=== PATIENT | male | born 1950 | race Caucasian/White ===

== ENCOUNTER 2017-06-29 10:13 | Day surgery (SDC) | payer MEDICARE ==
[2017-06-28 19:01] VITALS: BMI 30.8
[2017-06-29] MEDS ORDERED: Midazolam HCl 2 mg/2 ml Vial ONE ×2 (11:57→12:40)
[2017-06-29] MEDS ORDERED: HYDROmorphone 0.5 MG/0.5 ML SYRINGE ONE (12:27)
[2017-06-29] MEDS ORDERED: Fentanyl 100 MCG/2 ML VIAL ONE (12:40)
--- NOTE | 2017-06-29 15:32 | MRI ---
MRI LUMBAR SPINE PERFORMED WITHOUT CONTRAST ENHANCEMENT: History: Low back pain radiating to left hip. FINDINGS: Vertebral bodies are normal in height. There is mild disc narrowing at all vertebral body levels and disc desiccation changes with more severe disc narrowing seen at L2-3. Degenerative facet changes are present. No significant periaortic adenopathy is visualized. Small T2 hyperintense lesions involving the kidne ys are statistically most likely a small cyst. T12-L1: Degenerative facet changes without canal or foraminal stenosis. L1-2: Degenerative facet and ligamentous hypertrophic changes without canal or foraminal stenosis. L2-3: Once again there are degenerative facet and ligamentous hypertrophic changes. No significant ca nal narrowing seen. L3-4: Facet and ligamentous hypertrophic changes with a mild disc bulge contribute to a moderately se huey canal stenosis and moderate to severe bilateral foraminal narrowing. L4-5: Very severe canal stenosis is present at this level with marked degenerative facet and ligament ous hypertrophic changes. There is moderately severe left foraminal narrowing, minimal right sided fo raminal narrowing seen. L5-S1: Canal is mildly stenotic. Degenerative facet changes and disc changes contribute to moderately severe bilateral foraminal narrowing. IMPRESSION: 1. Multilevel canal and foraminal stenosis. POS: [facility]
== END 2017-06-29 14:17 | disposition home or self-care (01) ==
LOC: SDC/OP 10:13 → EDSTATUS 12:00 → SDC/OP 14:17
PROVIDERS: ATTEND Psychiatry & Neurology Neurology
DX: M51.17 Intervertebral disc disorders with radiculopathy, lumbosacral region (principal); I25.10 Atherosclerotic heart disease of native coronary artery without angina pectoris; I10 Essential (primary) hypertension; F17.210 Nicotine dependence, cigarettes, uncomplicated; Z88.8 Allergy status to other drugs, medicaments and biological substances; Z79.82 Long term (current) use of aspirin; Z79.1 Long term (current) use of non-steroidal anti-inflammatories (NSAID); Z79.899 Other long term (current) drug therapy
CPT/HCPCS: 72148; J1170; J2250; J3010

== ENCOUNTER 2017-10-08 10:41 | Outpatient (CLI) | payer MEDICARE ==
--- NOTE | 2017-10-08 14:18 | RAD ---
RADIOGRAPH LUMBAR SPINE 4 VIEWS: DATE: 10-08-17 HISTORY: 67-year-old male with low back pain and lumbar spondylosis. COMPARISON: None. TECHNIQUE: Three lateral views in neutral, flexion, and extension. AP view. FINDINGS: There are five lumbar type vertebrae. There is mild left lateral curvature, with apex at L1-2. Large bridging osteophytes protruding into the prevertebral space at T12-L1 and L1-2. Vertebral body height s are maintained. Multilevel moderate disc space narrowing. Grade I anterolisthesis of L4 on L5 due t o severe facet DJD at that level. No definite instability between flexion or extension identified. IMPRESSION: 1. Lumbar spondylosis with multilevel degenerative disc disease and facet osteoarthrosis. 2. Severe facet osteoarthrosis at L4-5 causing grade I spondylolisthesis at that level. 3. No instability identified. CHANDAN POS: [facility]
== END 2017-10-08 10:42 | disposition home or self-care (01) ==
LOC: TBSIIMAG 10:41
PROVIDERS: ATTEND Surgery
DX: M48.061 Spinal stenosis, lumbar region without neurogenic claudication (principal); M51.36 Other intervertebral disc degeneration, lumbar region; M47.896 Other spondylosis, lumbar region; M43.16 Spondylolisthesis, lumbar region
CPT/HCPCS: 72120

== ENCOUNTER 2018-01-20 11:11 | Day surgery (SDC) | payer MEDICARE ==
[2018-01-19 08:56] VITALS: BMI 29.1
[~2018-01-20 11:11] MED LIST: Dexamethasone 20 MG/5 ML VIAL ONE; Glycopyrrolate 0.2 MG/ML 5 ML SYRINGE ONE; Labetalol HCl 100 MG/20 ML VIAL ONE; Lidocaine 1% PF 5 ML VIAL ONE; Metoclopramide HCl 10 MG/2 ML VIAL ONE; Ondansetron PF 4 MG/2 ML Vial ONE; PROPOFOL 200 MG/20 ML VIAL ONE; PROVENTIL INHALER 6.7 G (200 INHALATIONS) ONE
[2018-01-20 12:06] LABS: Hemoglobin 17.1 g/dL (14.0-18.0); Mean Corpuscular HGB CONC 32.3 g/dL (32.0-36.0); Mean Platelet Volume 7.7 fL (7.4-10.4); Platelet Count 251 thou/uL (130-400); RBC Distribution Width 12.3 % (11.5-14.5); Red Blood Cell (RBC) Count 5.51 mill/uL (4.70-6.10); White Blood Cell (WBC) Count 12.5 thou/uL (4.8-10.8)
[2018-01-20 12:18] LABS: PTT 34.7 SEC (22.9-36.1); Prothrombin Time 13.1 SEC (12.0-14.7)
[2018-01-20] MEDS ORDERED: CEFAZOLIN 2 GM/50 ML BAG ONE (12:21)
[2018-01-20 12:26] LABS: Anion Gap 10 mmol/L (10-20); BUN (Urea Nitrogen) 14 mg/dL (8.4-25.7); Calc. Creatinine Clearance 125 mL/min (70-130); Calcium 9.5 mg/dL (7.8-10.44); Carbon Dioxide 26 mmol/L (23-31); Chloride 105 mmol/L (98-107); Estimated GFR-MDRD Greater than 90; Glucose 97 mg/dL (80-115); Potassium 4.1 mmol/L (3.5-5.1); Sodium 137 mmol/L (136-145)
[2018-01-20] MEDS ORDERED: Sodium Chloride 0.9% 10 ML ONE (12:30)
[2018-01-20] MEDS ORDERED: Bacitracin Zinc Ointment 30 gm TUBE ONE (12:30)
[2018-01-20] MEDS ORDERED: Thrombin 5000 UNITS/5 ML VIAL ONE (12:30)
[2018-01-20] MEDS ORDERED: Fentanyl 100 MCG/2 ML VIAL ONE ×2 (13:32→15:57)
[2018-01-20] MEDS ORDERED: Bisacodyl 10 MG SUPP PR PRN (16:05)
[2018-01-20] MEDS ORDERED: Mag-Al 1200 mg/1200 mg/30 ML UDCUP PO PRN (16:05)
[2018-01-20] MEDS ORDERED: Promethazine HCl 25 MG/ML VIAL IM PRN ×2 (16:05→16:30)
[2018-01-20] MEDS ORDERED: tiZANidine HCl 4 MG TAB PO PRN (16:05)
[2018-01-20] MEDS ORDERED: Milk Of Magnesia 30 ML UDCUP PO PRN (16:05)
[2018-01-20] MEDS ORDERED: Fleet Enema 133 ML BOT PR PRN (16:05)
[2018-01-20] MEDS ORDERED: Acetaminophen 325 MG TAB PO PRN (16:05)
[2018-01-20] MEDS ORDERED: Ondansetron HCl/PF 4 MG/2 ML Vial IVP PRN (16:30)
[2018-01-20] MEDS ORDERED: Morphine Sulfate 2 MG/ML SYRINGE SLOW IVP PRN (16:30)
[2018-01-20] MEDS ORDERED: PACU-Morphine 4MG/ML VIAL SLOW IVP PRN (16:30)
[2018-01-20] MEDS ORDERED: Promethazine HCl 25 MG/ML VIAL SLOW IVP PRN (16:30)
[2018-01-20] MEDS ORDERED: HYDROmorphone 2 MG/ML VIAL SLOW IVP PRN (16:30)
[2018-01-20] MEDS ORDERED: Meperidine HCl/PF 25 MG/ML VIAL SLOW IVP PRN (16:30)
[2018-01-20] MEDS ORDERED: Morphine 4 MG/ML VIAL ONE ×2 (16:35→16:56)
[2018-01-20] MEDS ORDERED: HYDROmorphone 2 MG/ML VIAL ONE (17:35)
[2018-01-20] MEDS: Sodium Chloride 0.9% 1,000 ML IV SCH (19:51)
[2018-01-20] MEDS: HYDROcodone/Acetaminophen 7.5/325 mg Tablet PO PRN (20:43)
[2018-01-20] MEDS: CEFAZOLIN 2 GM/50 ML BAG IVPB SCH (20:43)
[2018-01-20] MEDS: Acetaminophen/Codeine 30-300mg Tablet PO PRN (20:44)
[2018-01-21] MEDS: Morphine 2 MG/ML SYRINGE SLOW IVP PRN ×2 (00:25→03:04)
[2018-01-21] MEDS: HYDROcodone/Acetaminophen 7.5/325 mg Tablet PO PRN (00:49)
[2018-01-21] MEDS: Acetaminophen/Codeine 30-300mg Tablet PO PRN (00:49)
[2018-01-21] MEDS: CEFAZOLIN 2 GM/50 ML BAG IVPB SCH (03:04)
[2018-01-21 03:55] VITALS: TEMP 98.6
[2018-01-21] MEDS: Sodium Chloride 0.9% 1,000 ML IV SCH (06:45)
[2018-01-21 08:24] VITALS: BP 136/81
[2018-01-21] MEDS ORDERED: Lisinopril 10 MG TAB PO SCH (09:00)
[2018-01-21] MEDS ORDERED: Ezetimibe 10 MG TAB PO SCH (09:00)
--- NOTE | 2018-01-21 13:25 | DIS-2 ---
DATE OF ADMISSION: 01/20/2018 DATE OF DISCHARGE: 01/21/2018 DISCHARGE DIAGNOSES: 1. Lumbar spinal stenosis with neurogenic claudication. 2. Lumbar radiculopathy. HOSPITAL COURSE: Mr. Mojica was admitted to undergo multilevel lumbar laminectomies at [facility]. He tolerated the procedure well and his surgery was without complication. He required 1 ove rnight stay and was stable for discharge. He had met criteria and he had good strength in the bilate ral lower extremities and was up walking. He had significant improvement in bilateral lower extremit y pain with walking, but did have some incisional back pain. Appropriate patient education and [facility] appointments were provided and at the time of discharge, the patient and his were pleased wi th his outcome postoperatively.
--- NOTE | 2018-01-24 10:45 | OP ---
DATE OF PROCEDURE: 01/20/2018 SURGEON: Richard Fletcher M.D. SUPERVISOR PHOTOCOMPOSITION: Frank Love PA-C. PREPROCEDURE DIAGNOSES: Multilevel lumbar stenosis with low back and leg pain. POSTPROCEDURE DIAGNOSES: Multilevel lumbar stenosis with low back and leg pain. PROCEDURE: L3-L4, L4-L5, L5-S1 laminectomies, partial facetectomies, foraminotomies over the L3, L4, L5, S1 nerve roots. DESCRIPTION OF PROCEDURE: After informed consent was obtained from the patient, the patient brought to OR. Proper patient pause and identification was carried out. He was placed in excellent endotrac heal anesthesia and positioned prone on the OR table. All appropriate points were padded. We identi fied the L3, L4, L5, S1 dorsal spines. A linear tawnya was made over this region. This area was steri elif cleansed, prepared, and draped. Proper patient pause and identification was carried out. The w ound was then opened with a combination of sharp, monopolar and blunt dissection. The L3, L4, L5, S1 dorsal spines lamina were exposed. Localization film confirmed our area of interest. We then perfo rmed L3, L4, L5, S1 laminectomies, partial facetectomies and foraminotomies over all of those nerve r oots. Copious irrigation occurred throughout as did maximizing hemostasis. The wound was then close d in anatomic layers following the sprinkling of vancomycin powder. There was no spinal fluid leak. The patient then emerged from anesthesia.
== END 2018-01-21 09:56 | disposition home or self-care (01) ==
LOC: SDC 11:11 → SURG A 16:05 → UNDOADMOB 16:05 → UNDODISOB 01-21 09:56 → SDC 01-21 09:56
PROVIDERS: ATTEND Surgery
PROC: 01NB0ZZ Release Lumbar Nerve, Open Approach (ICD-10-PCS; principal; 2018-01-20)
DX: M48.062 Spinal stenosis, lumbar region with neurogenic claudication (principal); M54.16 Radiculopathy, lumbar region; Z79.1 Long term (current) use of non-steroidal anti-inflammatories (NSAID); Z79.82 Long term (current) use of aspirin; Z79.899 Other long term (current) drug therapy; Z88.8 Allergy status to other drugs, medicaments and biological substances
CPT/HCPCS: 36415; 76001; 80048; 85027; 85610; 85730; 96374; J0131; J1170; J2270; J2550; J3010; J3370; J3490

== ENCOUNTER 2018-03-22 06:19 | Outpatient (CLI) | payer MEDICARE ==
[2018-03-22 12:56] LABS: Hemoglobin 16.6 g/dL (14.0-18.0); Mean Corpuscular Hemoglobin 30.9 pg (27.0-31.0); Mean Corpuscular Volume 93.7 fL (78.0-98.0); Mean Platelet Volume 8.2 fL (7.4-10.4); Platelet Count 234 thou/uL (130-400); RBC Distribution Width 12.6 % (11.5-14.5); Red Blood Cell (RBC) Count 5.36 mill/uL (4.70-6.10); White Blood Cell (WBC) Count 12.8 thou/uL (4.8-10.8)
== END 2018-03-22 06:20 | disposition home or self-care (01) ==
LOC: LABBT 06:19
PROVIDERS: ATTEND Orthopaedic Surgery
DX: Z01.812 Encounter for preprocedural laboratory examination (principal); G56.22 Lesion of ulnar nerve, left upper limb
CPT/HCPCS: 85027

== ENCOUNTER 2018-03-24 07:19 | Day surgery (SDC) | payer MEDICARE ==
[2018-03-22 12:06] VITALS: BMI 29.0
[2018-03-24] MEDS ORDERED: Bupivacaine HCl 0.5%/Epinephrine 1:200,000/PF 30 ml Vial ONE (08:01)
[2018-03-24 08:40] LABS: Anion Gap 12 mmol/L (10-20); BUN (Urea Nitrogen) 15 mg/dL (8.4-25.7); Calc. Creatinine Clearance 126 mL/min (70-130); Calcium 9.7 mg/dL (7.8-10.44); Carbon Dioxide 27 mmol/L (23-31); Chloride 104 mmol/L (98-107); Estimated GFR-MDRD Greater than 90; Glucose 97 mg/dL (80-115); Potassium 4.6 mmol/L (3.5-5.1); Sodium 138 mmol/L (136-145)
[2018-03-24] MEDS ORDERED: CEFAZOLIN 2 GM/50 ML BAG ONE (08:45)
[2018-03-24] MEDS ORDERED: Fentanyl 100 MCG/2 ML VIAL ONE (08:50)
[2018-03-24] MEDS ORDERED: Lidocaine 1% PF 5 ML VIAL ONE (14:18)
[2018-03-24] MEDS ORDERED: PROPOFOL 200 MG/20 ML VIAL ONE (14:18)
--- NOTE | 2018-03-24 17:07 | EKG ---
Test Reason : PREOP Blood Pressure : / mmHG Vent. Rate : 080 BPM Atrial Rate : 080 BPM P-R Int : 184 ms QRS Dur : 134 ms QT Int : 402 ms P-R-T Axes : 052 071 018 degrees QTc Int : 463 ms Normal sinus rhythm Right bundle branch block Abnormal ECG No previous ECGs available Confirmed by DR. Harjeet LOVE ([id number]) on 03/24/2018 5:06:55 PM Referred By: JEFFERY Confirmed By:DR. Harjeet LOVE
--- NOTE | 2018-03-24 22:29 | OP ---
DATE OF PROCEDURE: 03/24/2018 PREOPERATIVE DIAGNOSIS: Left cubital tunnel. POSTOPERATIVE DIAGNOSIS: Left cubital tunnel. PROCEDURES PERFORMED: 1. Left carpal tunnel release. 2. Long-arm splint. JOB ORDER CLERK: None. ANESTHESIOLOGIST: Diana Torre MD ANESTHESIA: The patient received a LMA with a 15 mL of Marcaine 0.5% with epinephrine. TOURNIQUET TIME: 24 minutes at 250 mmHg. ANTIBIOTICS: Ancef 2 g. COMPLICATIONS: None. HISTORY OF PRESENT ILLNESS: Mr. Mojica is a 67-year-old male, who presented to me with left elbow pain, which has been present for several weeks. The patient had nerve conduction studies, which showed persistent numbness and tingling to his fingers. The patient has severe cubital tunnel changes on imaging. The patient had numbness and tingling and acute onset of pain persistent to 4th and 5th finger. I discussed with the patient the risks and benefits of a left cubital tunnel release to include pain, scar, bleeding, infection, damage to vital structures, decreased range of motion and strength, continued pain despite surgical intervention, need for further surgeries, failure procedure, damage to vital structures, loss of life or limb. The patient understood the risks and benefits and would like to proceed. DESCRIPTION OF PROCEDURE: A time-out performed designating the patient's left upper extremity as the operative site, based on site, consent, and marking. After time-out, the patient's left upper extremity was prepped and draped in the sterile fashion. Tourniquet was brought up for 24 minutes. I made an incision down through skin, I came on top of where the tunnel lies. I found the patient's triceps dissected down and found the nerve proximally, moved and traced it distally taking the sleeve from lateral to medial to help keep it from subluxing and take the Tavares's fascia in that direction, as I came up, I completely released all of the Tavares's fascia. There is little bursitis and it looked like what appeared to be a hematoma or potentially a bursal sac that was filled with blood, which I decompressed, which could have been causing a mass effect on the patient's nerve distally. After I can decompress that, I sucked out all the blood, I followed into the muscle plane, I did not take down any of the patient's branches to its beginning of his FCU or any other musculature on the ulnar surface of the arm. I completely ensured that it was completely decompressed throughout proximally and distally. Completing this, I used the flap that I created in Tavares's ligament and sewed it under the skin to help with keeping it from subluxing, 3-0 nylon. I injected 15 mL of 0.5% Marcaine with epinephrine. I then placed the patient in a posterior splint. The patient will remain in a splint for a week, then remove it, and begin range of motion of his elbow and follow up with me in 2 weeks. The patient will be sent home with hydrocodone 5/325 for pain relief. Job ID: [id number]
== END 2018-03-24 11:12 | disposition home or self-care (01) ==
LOC: SDC 07:19
PROVIDERS: ATTEND Orthopaedic Surgery
PROC: 01N40ZZ Release Ulnar Nerve, Open Approach (ICD-10-PCS; principal; 2018-03-24)
DX: G56.22 Lesion of ulnar nerve, left upper limb (principal); I25.10 Atherosclerotic heart disease of native coronary artery without angina pectoris; I10 Essential (primary) hypertension; Z87.891 Personal history of nicotine dependence; Z79.82 Long term (current) use of aspirin; Z79.899 Other long term (current) drug therapy; Z88.8 Allergy status to other drugs, medicaments and biological substances
CPT/HCPCS: 80048; 93005; 93010; J0670; J2001; J2704; J3010

== ENCOUNTER 2018-10-27 11:56 | Inpatient (IN) | payer MEDICARE ==
[2018-10-27 12:24] LABS: #Basophils 0.1 thou/uL (0.0-0.2); #Eosinphils 0.2 thou/uL (0.0-0.7); #Lymphocytes 4.4 thou/uL (1.20-3.40); #Neutrophils 8.8 thou/uL (1.40-6.50); %Basophils 0.7 % (0.0-1.0); %Eosinophils 1.7 % (0.0-10.0); %Lymphocytes 30.4 % (21.0-51.0); %Neutrophils 60.3 % (42.0-75.0); Hemoglobin 17.1 g/dL (14.0-18.0); Mean Corpuscular HGB CONC 32.9 g/dL (32.0-36.0); Mean Corpuscular Hemoglobin 30.6 pg (27.0-31.0); Mean Corpuscular Volume 93.2 fL (78.0-98.0); Mean Platelet Volume 8.3 fL (7.4-10.4); Platelet Count 220 thou/uL (130-400); RBC Distribution Width 13.3 % (11.5-14.5); Red Blood Cell (RBC) Count 5.59 mill/uL (4.70-6.10); White Blood Cell (WBC) Count 14.6 thou/uL (4.8-10.8)
--- NOTE | 2018-10-27 12:36 | RAD ---
PORTABLE CHEST ONE VIEW: Date: 10-27-18 at 12:22 p.m. History: Shortness of breath, chest pain. FINDINGS: Comparison is made with exam of 11-07-12. The heart size is normal. The lungs are well expanded without focal areas of consolidation, pneumotho races, or pleural effusions. IMPRESSION: No radiographic evidence of acute cardiopulmonary process. POS: [facility]
[2018-10-27] MEDS ORDERED: Metoprolol Tartrate 5 MG/5 ML VIAL ONE ×2 (12:42→14:47)
[2018-10-27 12:43] LABS: ALT (SGPT) 20 U/L (8-55); AST (SGOT) 20 U/L (5-34); Albumin 4.4 g/dL (3.4-4.8); Alkaline Phosphatase 104 U/L (40-150); Anion Gap 9 mmol/L (10-20); BUN (Urea Nitrogen) 13 mg/dL (8.4-25.7); Bilirubin, Total 0.6 mg/dL (0.2-1.2); CK (CPK) 110 U/L (30-200); Calc. Creatinine Clearance 0 mL/min (70-130); Calcium 9.7 mg/dL (7.8-10.44); Carbon Dioxide 27 mmol/L (23-31); Chloride 104 mmol/L (98-107); Estimated GFR-MDRD Greater than 90; Globulin 2.6 g/dL (2.4-3.5); Glucose 110 mg/dL (80-115); Lipase 16 U/L (8-78); Potassium 4.2 mmol/L (3.5-5.1); Sodium 136 mmol/L (136-145)
[2018-10-27] MEDS ORDERED: Digoxin 0.5 MG/2 ML AMP ONE (15:31)
[2018-10-27 15:58] LABS: Troponin I 0.018 ng/mL (< 0.028)
[2018-10-27] MEDS ORDERED: Senokot S 8.6-50 MG TAB PO PRN (16:13)
[2018-10-27] MEDS ORDERED: Bisacodyl 10 MG SUPP PR PRN (16:13)
[2018-10-27] MEDS ORDERED: Zolpidem Tartrate 5 MG TAB PO PRN (16:13)
[2018-10-27] MEDS ORDERED: Calcium Carbonate 500 MG ChewTAB PO PRN (16:13)
[2018-10-27] MEDS ORDERED: HYDROcodone/Acetaminophen 5/325 mg Tablet PO PRN (16:13)
[2018-10-27] MEDS ORDERED: Loperamide HCl 2 MG CAP PO PRN (16:13)
[2018-10-27] MEDS ORDERED: Ondansetron PF 4 MG/2 ML Vial IVP PRN (16:13)
[2018-10-27] MEDS ORDERED: Ondansetron ODT 4 MG TAB PO PRN (16:13)
[2018-10-27] MEDS ORDERED: Acetaminophen 325 MG TAB PO PRN (16:13)
[2018-10-27] MEDS ORDERED: Sodium Chloride 0.9% 1,000 ML IV SCH (16:15)
[2018-10-27] MEDS ORDERED: Digoxin 0.5 MG/2 ML AMP SLOW IVP SCH (16:45)
--- NOTE | 2018-10-27 17:10 | HP ---
PRIMARY CARE PHYSICIAN: Steven De La Rosa MD REASON FOR ADMISSION: Atrial flutter with rapid ventricular response. HISTORY OF PRESENT ILLNESS: This is a 68-year-old male, who has underlying history of hypertension and dyslipidemia, who presented to the emergency room with complaint of generalized weakness. The patient reports that at home he suddenly felt generalized weak and he decided to check his vitals and he noted that his pulse was very fast and his blood pressure was very low. He was feeling weak and mild dizziness and mild shortness of breath. He did not have any chest pain. The patient reports that today around 3:30 a.m., he woke up, and at that time, he was having vague epigastric discomfort and he was feeling weak as well as diaphoretic and symptoms resolved, but this morning again he was feeling weak and his blood pressure was low and pulse was fast and that is why he called his primary care physician who advised him to go to emergency room for evaluation. In the emergency room, the patient was hypotensive. He had atrial flutter with rapid ventricular response. The patient did not have this type of problem in the past. He did not have any stroke in past. He was given two doses of metoprolol 5 mg, but still his heart rate was not coming down and that is why we decided to keep this patient in the hospital. Currently, the patient denies any chest pain. He denies any dizziness. He denies any constipation, diarrhea, melena, or hematochezia. REVIEW OF SYSTEMS: CONSTITUTIONAL: Negative for weight loss or gain, ability to conduct usual activities. SKIN: Negative for rash, itching. EYES: Negative for double vision, pain. ENT/MOUTH: Negative for nose bleeding, neck stiffness, pain, tenderness. CARDIOVASCULAR: Negative for palpitations, dyspnea on exertion, orthopnea. RESPIRATORY: Negative for shortness of breath, wheezing, cough, hemoptysis, fever or night sweats. GASTROINTESTINAL: Negative for poor appetite, abdominal pain, heartburn, nausea, vomiting, constipation, or diarrhea. GENITOURINARY: Negative for urgency, frequency, dysuria, nocturia. MUSCULOSKELETAL: Negative for pain, swelling. NEUROLOGIC/PSYCHIATRIC: Negative for anxiety, depression. ALLERGY/IMMUNOLOGIC: Negative for skin rash, bleeding tendency. Please see my HPI for pertinent positives and negatives. All other review of systems reviewed and negative except as mentioned in the HPI. PAST MEDICAL HISTORY: Hypertension, dyslipidemia, osteoarthritis, and DJD of spine. PAST SURGICAL HISTORY: Shoulder surgery and knee surgery. PAST PSYCHIATRIC HISTORY: Reviewed and negative. SOCIAL HISTORY: The patient is currently smoking cigarettes. He is . He smokes about half pack per day. He denies any alcohol abuse. He denies any other illicit drug abuse. FAMILY HISTORY: No strong family history of premature coronary artery disease, stroke, or cancer. ALLERGIES: THE PATIENT IS NOT TOLERATING ANY STATINS. MEDICATIONS: Current home medications: 1. Aspirin 81 mg p.o. daily. 2. Lisinopril 10 mg daily. 3. Zetia 10 mg p.o. daily. EMERGENCY ROOM COURSE: The patient was given metoprolol 5 mg IV x2 dose. FAMILY HISTORY: No strong family history of premature coronary artery disease, stroke, or cancer. PHYSICAL EXAMINATION: VITAL SIGNS: Currently, blood pressure 112/85, pulse 178, respiratory rate 19, temperature 98.1, and saturation 96% on room air. Weight 92.9 kg. GENERAL: The patient is currently alert and awake, no obvious acute distress. HEENT: Head; normocephalic, atraumatic. Eyes; pupils round, reactive to light. Extraocular muscle intact. ENT; oropharynx within normal limits. Moist mucous membranes. No oral lesion. No pharyngeal erythema. No exudate. NECK: Supple. No JVD. No thyromegaly. No carotid bruit. No jugular venous distention. LUNGS: Clear to auscultation without any rhonchi or rales. CARDIAC: S1 and S2 tachycardia. No murmur, no gallop, no rub. ABDOMEN: Soft, benign, without any tenderness. EXTREMITIES: No edema. NEUROLOGIC: Nonfocal examination. SIGNIFICANT LABORATORY DATA: EKG showing atrial flutter, right bundle-branch block pattern. Chest x-ray, no acute process. CBC; WBC 14.6, hemoglobin 17.1, and platelets 220. BMP; sodium 136, potassium 4.2, chloride 104, carbon dioxide 27, BUN 13, creatinine 0.78, glucose 110, and calcium 9.7. LFT; AST 20, ALT 20, alkaline phosphatase 104, albumin 4.4, and lipase 16. Troponin negative x2. ASSESSMENT AND PLAN: 1. Atrial flutter with rapid ventricular response. Cardiology will be consulted. Echocardiography will be obtained. We will check TSH tomorrow morning. Further treatment plan will defer to Cardiology. We will give digoxin 0.25 mg one time dose now, and if needed, we will repeat the dose of digoxin. 2. Dyslipidemia. Continue Zetia 10 mg p.o. daily. 3. Hypertension. Currently, the patient has low blood pressure and that is why we will hold on lisinopril therapy. 4. Tobacco abuse disorder. The patient was given smoking cessation counseling. 5. Deep venous thrombosis prophylaxis. 6. The patient will be kept on Lovenox 1 mg/kg subcu twice daily for atrial flutter. 7. Gastrointestinal prophylaxis. Pepcid 20 mg p.o. b.i.d. CODE STATUS: The patient is full code. The patient's is surrogate decision maker. DISPOSITION PLAN: Based on clinical course. Job ID: [id number]
[2018-10-27 18:38] LABS: Troponin I 0.016 ng/mL (< 0.028)
[2018-10-27 20:26] VITALS: BMI 29.7
[2018-10-27] MEDS ORDERED: Diltiazem 125 MG in Sodium Chloride 0.9% 100 ML IVPB SCH (20:45)
[2018-10-27] MEDS ORDERED: Enoxaparin Sodium 100 MG/ML SYRINGE SC SCH (21:00)
[2018-10-27] MEDS ORDERED: Prevnar 13-Val Conj/PF 0.5 ML SYRINGE IM ONE (21:00)
[2018-10-27] MEDS: Famotidine 20 MG TAB PO SCH (21:14)
[2018-10-27] MEDS: Sodium Chloride 0.9% 1,000 ML IV SCH (21:15)
--- NOTE | 2018-10-28 03:19 | CON ---
DATE OF CONSULTATION: INDICATION FOR CONSULTATION: A 68-year-old patient with atrial flutter, new onset this early a.m. with a rapid ventricular response, heart rate up to 180 beats per minute. HISTORY OF PRESENT ILLNESS: This very unfortunate 68-year-old gentleman, who has been seen by Dr. Woodward in the past, who has had intermittent episodes of atrial flutter. He has been evaluated by electrophysiology. There was some discussion about an ablation, but this is yet to be performed. He has had this intermittent flutter for several years now. He also has a history of coronary artery disease. He underwent a cardiac catheterization by Dr. Woodward in 2013. At that time, he was deemed to be medically treated. The left anterior descending artery had a 50% proximal stenosis. The left circumflex also had a 50% lesion in the 2nd obtuse marginal branch. The first obtuse margin branch apparently was diffusely diseased. The right coronary was chronically occluded after a marginal branch, but distally was filling by collaterals. At that time, he also had a right bundle-branch block, which persist. No left ventriculogram was performed at the time of the cardiac catheterization. He has not had a recent echocardiogram in the hospital. I do not have the medical records from the office available at this time. He presented this morning after noticing he woke up around 3'o clock this morning is a rapid heart rate. He denied any chest pain. He was not short of breath. Usually this atrial flutter will resolve itself, but did not this time. He presents my emergency room at which time, heart rate was 180 beats per minute with a right bundle-branch block and what appeared to be an atrial flutter pattern. He has some ST-segment changes, which could be due to a right bundle-branch block or due to mild ischemia associated with his underlying coronary disease, but he denied chest pain. Unfortunately, he still continues to smoke half a pack of cigarettes a day. He is on minimal medications. He is not on a beta taty, but was taking an ERIKA inhibitor as well as an aspirin a day and I believe he also was taking aspirin, lisinopril and Zetia with his home medications. He also takes some medication for his arthritis. He has actually been doing quite well with his coronary disease and had been stable until he started having the atrial flutter today. He was given metoprolol in the emergency room. The heart rate was still somewhat increased. At this time, it is ranging anywhere between 110s to 130s. He also was given 2 doses of IV digoxin 0.5 mg and then another 0.25 mg. At this time, we will initiate IV diltiazem, if the blood pressure tolerates this for better rate control and would suggest that he see dock or pier laborer tomorrow for possible ablation of the atrial flutter. He is not on any oral anticoagulation except for the aspirin. PAST MEDICAL HISTORY: Significant for the coronary artery disease as well as intermittent atrial flutter, possibly atrial fibrillation. He has had shoulder surgery and knee surgery. He has osteoarthritis. He has had degenerative joint disease of the spine. He has dyslipidemia as well as hypertension. FAMILY HISTORY: Noncontributory for any early heart disease. SOCIAL HISTORY: He continues to smoke half a pack a day. He drinks occasional beer. He is . ALLERGIES: HE HAS NO SPECIFIC MEDICATION ALLERGIES, BUT HE SAYS HE CANNOT TOLERATE STATIN MEDICATIONS DUE TO BACK PAIN. MEDICATIONS: As noted above for home: 1. Lisinopril 10 mg daily. 2. Zetia 10 mg daily. 3. Aspirin 81 mg daily. 4. Some medicine for his arthritis. REVIEW OF SYSTEMS: A 12-point review of systems unremarkable except for what was noted in the history of present illness. He does have arthritic-type pains, back pains and knee pains at times, but otherwise he denied any HEENT complaints, GI or complaints or neurological complaints. PHYSICAL EXAMINATION: GENERAL: Reveals a well-developed, well-nourished, very pleasant gentleman who is in no acute distress at this time. He is alert, he is oriented. VITAL SIGNS: His blood pressure is in the 120s/70s, at this time heart rate is anywhere between one teens to 130s, respiratory rate is 16 at this time. He is afebrile. HEENT: Shows the head to be normocephalic and atraumatic. Carotid pulses are present. I performed a carotid massage and the patient has underlying atrial flutter. He had some bradycardia and flutter waves became evident. There were no bruits noted. CHEST: Clear to auscultation without rales, rhonchi, or wheezing. CARDIOVASCULAR: Reveals a tachycardia, which is regular. Occasionally irregular, but mainly is regular and rapid. There were no gross murmurs noted. ABDOMEN: Soft, flat, and nontender. Positive bowel sounds are present. EXTREMITIES: Show no clubbing or cyanosis. He has some discoloration and some varicose veins in lower extremities. He had minimal ankle edema of the left foot. Pedal pulses are present, slightly decreased on the left, but normal on the right. NEUROLOGIC: The patient appears to be fully intact. IMAGING: EKG as noted above originally showed atrial flutter with a 2:1 block with a heart rate about 160s to 180 with a right bundle-branch block and ST-segment changes. The patient is pain free. He denies any chest pain. LABORATORY DATA: His cardiac enzymes are negative for any evidence of ischemia or myocardial infarction. His troponin I is 0.01. His BUN was 13 with a creatinine 0.78. Sodium was 136, potassium is 4.2. Hematologic, WBC is 14.6, which may be due to stress. He has no fever. Hemoglobin 17.1, platelet count 220,000. IMPRESSION: 1. Atrial flutter with rapid ventricular response. The heart rate is under somewhat better control after being given some medications in the emergency room, but still is elevated in the one teens to 130s. We will also initiate IV diltiazem. We will ask for an EP consultation for tomorrow. I will keep the patient n.p.o. after midnight. We will hold the a.m. dose of Lovenox with the thought that perhaps the patient can undergo an ablation of the atrial flutter tomorrow. 2. Hypertension, this is under good control at this time. We will continue to monitor the pressure. 3. History of coronary artery disease. He may benefit from beta blockers as well as other injectable statins, if he is not well controlled with the Zetia. I do not have a recent cholesterol level, but if he is unable to tolerate statins, he may be able to tolerate PCSK9 medications for his cholesterol. At this time, the patient remains stable. Blood pressure is stable. He is asymptomatic from any chest discomfort and we will continue to monitor him tonight and hopefully he will be able to lower the heart rate and then suggest an ablation most likely tomorrow. Job ID: [id number] [facility]
[2018-10-28 05:50] LABS: #Basophils 0.1 thou/uL (0.0-0.2); #Eosinphils 0.3 thou/uL (0.0-0.7); #Lymphocytes 4.7 thou/uL (1.20-3.40); #Monocytes 1.1 thou/uL (0.11-0.59); #Neutrophils 7.2 thou/uL (1.40-6.50); %Basophils 0.7 % (0.0-1.0); %Eosinophils 2.5 % (0.0-10.0); %Monocytes 7.9 % (0.0-10.0); Hemoglobin 16.4 g/dL (14.0-18.0); Mean Corpuscular HGB CONC 32.9 g/dL (32.0-36.0); Mean Corpuscular Volume 94.3 fL (78.0-98.0); Mean Platelet Volume 8.2 fL (7.4-10.4); Platelet Count 204 thou/uL (130-400); RBC Distribution Width 13.2 % (11.5-14.5); Red Blood Cell (RBC) Count 5.28 mill/uL (4.70-6.10); White Blood Cell (WBC) Count 13.4 thou/uL (4.8-10.8)
[2018-10-28 06:08] LABS: Anion Gap 11 mmol/L (10-20); BUN (Urea Nitrogen) 15 mg/dL (8.4-25.7); Calc. Creatinine Clearance 120 mL/min (70-130); Calcium 9.6 mg/dL (7.8-10.44); Carbon Dioxide 27 mmol/L (23-31); Chloride 103 mmol/L (98-107); Estimated GFR-MDRD Greater than 90; Glucose 90 mg/dL (80-115); Potassium 4.4 mmol/L (3.5-5.1); Sodium 137 mmol/L (136-145)
--- NOTE | 2018-10-28 08:56 | PRG ---
DATE OF SERVICE: 10/28/2018 SUBJECTIVE: Mr. Mojica is doing well. He has converted back to normal sinus rhythm. OBJECTIVE: VITAL SIGNS: His blood pressure is 108/72, pulse is 70, it is sinus now. LUNGS: Clear. CARDIAC: Normal S1, normal S2. ASSESSMENT: 1. Coronary artery disease, stable. 2. Atrial flutter with a rapid rate, now back in sinus rhythm. PLAN: The plan is for electrophysiologic evaluation and ablation later today, hopefully home after that. Job ID: [id number]
[2018-10-28] MEDS ORDERED: Aspirin 325 MG TAB PO SCH (09:00)
[2018-10-28] MEDS ORDERED: Ezetimibe 10 MG TAB PO SCH (09:00)
[2018-10-28] MEDS: Famotidine 20 MG TAB PO SCH (09:18)
[2018-10-28] MEDS: Sodium Chloride 0.9% 1,000 ML IV SCH (10:00)
[2018-10-28] MEDS ORDERED: Lidocaine 1% (PF) 30 ML VIAL ONE (10:32)
[2018-10-28] MEDS ORDERED: Heparin 10,000 UNITS/1 ML VIAL ONE (11:00)
[2018-10-28] MEDS ORDERED: Midazolam HCl 2 mg/2 ml Vial ONE (11:43)
[2018-10-28] MEDS ORDERED: Fentanyl 100 MCG/2 ML VIAL ONE (11:43)
[2018-10-28] MEDS ORDERED: Isoproterenol 0.2 MG/1 ML AMP ONE (12:48)
--- NOTE | 2018-10-28 14:01 | OP ---
DATE OF PROCEDURE: 10/28/2018 PROCEDURES PERFORMED: Electrophysiology study and radiofrequency ablation. ADDITIONAL REFERRING PHYSICIANS: 1. Roberta Garrett MD. 2. Sadia Carrillo MD. REASON FOR PROCEDURE: Mr. Mojica is a 68-year-old male with prior history of syncope spells, near syncopal spells, and frequent palpitations, who presented with sustained atrial flutter eventually after hours of rapid rates on diltiazem. He did tolerate the atrial fibrillation and the arrhythmia stopped. He is back in sinus rhythm. He is here for EP study and radiofrequency ablation. DESCRIPTION OF PROCEDURE: The patient received propofol and deep sedation by Anesthesia specialist. The right femoral venous area was prepped, draped, and anesthetized with subcutaneous lidocaine and under ultrasound guidance, the right femoral vein was cannulated x2. Two 8-Occitan short sheath was introduced through which a ThermoCool SFST catheter was advanced to the right atrium and 3D map of the right atrium, His bundle, and CS positions were obtained. A decapolar catheter was advanced to the right atrium, right ventricle, His bundle, and CS positions. Pacing, mapping, and recording were performed at each location including RV pacing and the left atrial pacing via the CS. Following findings were noted. Baseline rhythm was sinus rhythm with WA 202 milliseconds, QRS 127 milliseconds, QT 345 milliseconds, and HV interval was 52 milliseconds. No VA conduction was seen with ventricular pacing. AV Wenckebach cycle length was 360 milliseconds. AV ceci ERP was measured at 600/240 milliseconds. Dual AV ceci physiology was noted, but no echo beats were seen. Burst atrial pacing was performed in the atrium, but we were not able to induce any atrial arrhythmias. At this point, hence the baseline EKGs showed typical atrial flutter, likely to be isthmus dependent, radiofrequency ablation of the cavotricuspid isthmus was performed, increasing the transisthmus line from initial of 40 milliseconds to 140 milliseconds. Isthmus block was demonstrated by longest post pacing interval adjacent to the ablation line. Following the dopamine was administered and the induction protocol was repeated, but the atrial flutter was not reinduced. IV Isuprel was administered and ablation line was rechecked. The induction protocol was repeated. No significant PACs were seen throughout the case. No atrial fibrillation was induced. Total of five lesions were delivered at 4 minutes and 36 seconds. Cardiac silhouette did not change pre and postprocedure. CONCLUSION: 1. Successful cavotricuspid ablation. 2. Normal sinus and AV ceci function. 3. No evidence of accessory pathway noted. 4. Dual AV ceci physiology present without inducible AVNRT. Job ID: [id number]
--- NOTE | 2018-10-28 14:08 | CON ---
DATE OF CONSULTATION: 10/28/2018 PRIMARY LAST GREASER: Khalif Woodward MD HISTORY OF PRESENT ILLNESS: I am seeing Mr. 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 His problems are: 1. Recurrent severe palpitations. 2. Newly documented typical isthmus dependent atrial flutter. Transient atrial fibrillation prior to termination is also seen. 3. Episodes of near syncope with remote history of syncopal spell. 4. History of 100% RCA, 50% circumflex and LAD lesions in the left heart catheterization on 12/27/2013. 5. History of smoking. 6. History of dyslipidemia and hypertension. ALLERGIES: NONE, BUT CANNOT TOLERATE STATIN DUE TO BACK PAIN. MEDICATIONS AT HOME: Include, 1. Lisinopril. 2. Zetia. 3. Aspirin. 4. Some arthritis medication. SUBJECTIVE: Mr. Mojica is here with recurrent palpitations. This started about 3 o'clock on the day of admission with rapid heart rates. He had some dyspnea. Usually, he has similar episodes, which will self terminate, but this time it did not. His heart rates were up to 180 beats per minute at the time when he arrived to the ER. He had no PND or orthopnea. No stroke-like symptoms. No neurological deficits. No fever, chills, or cough. Rest of 12-point review of systems is otherwise unremarkable. PAST MEDICAL HISTORY: As above. The patient has history of shoulder surgery and knee surgery and has history of osteoarthritis and DJD of the spine as well. FAMILY HISTORY: Not contributory. SOCIAL HISTORY: The patient continues to smoke a half pack a day. Drinks occasional beer. He is . OBJECTIVE DATA: VITAL SIGNS: Blood pressure is 115/72, heart rate 86, respiratory rate is 16, temperature 97.4 degrees Fahrenheit. GENERAL: Alert and oriented man, in no apparent distress. NECK: Supple. Jugular veins not distended. CHEST: Coarse without crackles. HEART: Sounds are regular rate and rhythm. No murmur or gallop. ABDOMEN: Benign. Bowel sounds positive. EXTREMITIES: Lower extremities without edema, clubbing, or cyanosis. Pulses are adequate. NEUROLOGIC: The patient is nonfocal. MUSCULOSKELETAL: Without joint swelling or deformity. SKIN: Without rash. DATABASE: EKG is reviewed. Initial EKG revealed typical isthmus dependent atrial flutter with one-to-one AV conduction. Lately, rhythm strips with diltiazem revealed variable AV conduction. An EKG this morning though demonstrates sinus rhythm with right bundle-branch block and nonspecific ST-T changes. LABORATORY DATA: White count is 13.4, hemoglobin is 16.4, platelet count is 204. Sodium 137, potassium 4.4, BUN is 15, creatinine 0.76. Troponin levels are 0.01, 0.018, and 0.016. TSH is 1.7195. ASSESSMENT AND PLAN: Mr. Mojica is a pleasant 68-year-old male with history of recurrent palpitations, remote syncopal and recurrent near syncopal spells, who has chronic right coronary artery occlusion and now has EKG documentation of typical isthmus dependent atrial flutter with very rapid rates. We have discussed potential treatment options, which could include continued rate control, antiarrhythmic agents versus ablation therapy. At this point, he would prefer ablation therapy. We discussed the differences between the mechanism of atrial flutter and fibrillation. We will plan to do our right-sided cavotricuspid ablation and monitor for recurrent arrhythmias. In the future, pulmonary venous isolation could be a consideration if recurrent left atrial arrhythmias are seen. Anticoagulation transiently is reasonable with NOAC or warfarin. Routine followup in our office will be requested after the ablation. In the end, we had agreed on ablation procedure and risk of infection, bleeding, stroke, and recurrence were discussed. He understands and willing to proceed. We will schedule him hopefully today if possible. Thank you again for allowing me to participate in the care of this patient. Job ID: [id number]
[2018-10-28] MEDS ORDERED: guaiFENesin ER 600 MG TAB PO SCH ×2 (15:00→21:00)
[2018-10-28 17:45] VITALS: BP 128/92; TEMP 96.6
--- NOTE | 2018-10-28 18:10 | DIS ---
DATE OF ADMISSION: 10/27/2018 DATE OF DISCHARGE: 10/28/2018 DISCHARGE DISPOSITION: Home. PRIMARY DISCHARGE DIAGNOSIS: Atrial flutter, status post cavotricuspid isthmus ablation. SECONDARY DISCHARGE DIAGNOSES: Hypertension, dyslipidemia, osteoarthritis, and tobacco abuse. PROCEDURES DONE DURING HOSPITALIZATION: The patient has had cavotricuspid isthmus ablation done for atrial flutter by Dr. Gonzalez. No evidence of accessory pathway was seen. Chest x-ray done showed no acute cardiopulmonary process. H and H 16 and 49, platelet count 204, BUN 15, creatinine 0.7. Troponin x3 negative. TSH 1.71, lipase 16, and albumin 4.4. DISCHARGE MEDICATIONS: 1. Aspirin 81 mg p.o. daily. 2. Zetia 10 mg p.o. every morning. 3. Lisinopril 10 mg p.o. daily. 4. Multivitamin one capsule daily. 5. Eliquis 5 mg p.o. twice daily. ALLERGIES: TO STATINS. INPATIENT CONSULT: 1. Dr. Woodward for Cardiology. 2. Dr. Janes Gonzalez for Electrophysiology. DISCHARGE PLAN: The patient to follow up with Dr. Gonzalez in three weeks and Dr. Woodward in 3 weeks and primary care physician in 1 week. BRIEF COURSE DURING HOSPITALIZATION: The patient initially came in with complaints of palpitations and generalized weakness. He was found to be in atrial flutter on arrival. This was new onset for him. He was given two doses of Lopressor and was placed on Cardizem drip in IMCU. The patient also received one time dose of digoxin 0.25 mg IV in the ER. He soon converted to sinus rhythm and he has had consultation with Dr. Woodward and Dr. Gonzalez for Cardiology and Electrophysiology. The patient has had EP studies done with ablation of cavotricuspid isthmus successfully. He is in sinus rhythm at the time of discharge. The patient is wanting to go home. He has been cleared by Dr. Gonzalez and Dr. Woodward for discharge. The patient needs to continue Eliquis for another 30 days. Prior to discontinuing Eliquis, he needs to follow up with Dr. Gonzalez and Crissy. He is otherwise hemodynamically stable and will be shortly discharged home. Please note, I have seen and examined the patient on the day of discharge. Job ID: [id number] [facility]
[2018-10-29] MEDS ORDERED: Apixaban 5 MG TAB PO SCH (09:00)
[2018-10-29] MEDS ORDERED: Aspirin Chewable 81 MG TAB PO SCH (09:00)
--- NOTE | 2018-11-01 22:40 | EKG ---
Test Reason : Blood Pressure : / mmHG Vent. Rate : 086 BPM Atrial Rate : 086 BPM P-R Int : 216 ms QRS Dur : 138 ms QT Int : 406 ms P-R-T Axes : 049 096 020 degrees QTc Int : 485 ms Sinus rhythm with 1st degree A-V block Possible Left atrial enlargement Right bundle branch block Abnormal ECG When compared with ECG of 24-MAR-2018 08:04, [place] interval has increased Confirmed by aCnelo LINARES ([id number]) on 11/01/2018 10:40:19 PM Referred By: [facility] Confirmed By:Canelo LINARES
== END 2018-10-28 18:10 | disposition home or self-care (01) | DRG 274 ==
LOC: ERS 11:56 → ERHOLD 15:28 → IMCU/EMU 20:18
PROVIDERS: ADMIT Internal Medicine; ATTEND Internal Medicine
PROC: 02583ZZ Destruction of Conduction Mechanism, Percutaneous Approach (ICD-10-PCS; principal; 2018-10-28)
PROC: 4A023FZ Measurement of Cardiac Rhythm, Percutaneous Approach (ICD-10-PCS; 2018-10-28)
PROC: 4A0234Z Measurement of Cardiac Electrical Activity, Percutaneous Approach (ICD-10-PCS; 2018-10-28)
DX: I48.92 Unspecified atrial flutter (principal); I10 Essential (primary) hypertension; E78.5 Hyperlipidemia, unspecified; M19.90 Unspecified osteoarthritis, unspecified site; F17.210 Nicotine dependence, cigarettes, uncomplicated; I25.10 Atherosclerotic heart disease of native coronary artery without angina pectoris; I45.10 Unspecified right bundle-branch block; Z79.899 Other long term (current) drug therapy; Z79.82 Long term (current) use of aspirin
CPT/HCPCS: 36415; 71045; 80048; 80053; 82550; 83690; 84443; 84484; 85025; 93005; 93010; 93306; 93613; 96374; 96375; 96376; C1730; C1732; C1769; J1160; J1644; J1650; J2001; J2250; J3010; J3490

== ENCOUNTER 2022-04-08 10:26 | Outpatient (CLI) | payer MEDICARE | END 2022-04-08 10:27 | disposition home or self-care (01) | LOC: BICRAD 10:26 | PROVIDERS: ATTEND Family Medicine | DX: M25.562 Pain in left knee (principal) ==

== ENCOUNTER 2022-07-24 17:44 | Emergency (ER) | payer MEDICARE ==
[2022-07-24] MEDS ORDERED: Ketorolac Tromethamine 30 MG/ML VIAL ONE (19:52)
== END 2022-07-24 20:04 | disposition home or self-care (01) ==
LOC: ERS 17:44
DX: S22.31XA Fracture of one rib, right side, initial encounter for closed fracture (principal); S43.51XA Sprain of right acromioclavicular joint, initial encounter; M21.80 Other specified acquired deformities of unspecified limb; M21.821 Other specified acquired deformities of right upper arm; I10 Essential (primary) hypertension; F17.210 Nicotine dependence, cigarettes, uncomplicated; W28.XXXA Contact with powered lawn mower, initial encounter; Z79.82 Long term (current) use of aspirin; Z79.899 Other long term (current) drug therapy
CPT/HCPCS: 96372; J1885